=== PATIENT | female | born 1935 | race Caucasian/White ===

== ENCOUNTER 2017-06-08 09:16 | Emergency (ER) | payer MEDICAID ==
[~2017-06-08] VITALS: Ht 167.6 cm; Wt 60.0 kg
[2017-06-08] MEDS ORDERED: KETOROLAC 60MG/2ML VIAL IM ONE (10:00)
[2017-06-08] MEDS ORDERED: PREDNISONE 20MG TABLET PO ONE (10:00)
[2017-06-08 11:15] VITALS: BP 164/87
== END 2017-06-08 11:38 | disposition home or self-care (01) ==
LOC: ER 09:16
DX: M75.01 Adhesive capsulitis of right shoulder (principal); I10 Essential (primary) hypertension
CPT/HCPCS: 73030; 96372; 99284; J1885; J7512; Z7610